=== PATIENT | female | born 1955 | race Caucasian/White ===

== ENCOUNTER 2019-07-18 08:27 | Inpatient (IN) ==
--- NOTE | 2019-07-18 08:59 | PROVIDER DOCUMENTATION ---
HPI-General Adult - General Chief Complaint: Flu Symptoms Stated Complaint: BODY PAIN Time Seen by Provider: 07/18/19 08:58 Source: patient Allergies/Adverse Reactions: Patient Allergies Allergy/AdvReac Type Severity Reaction Status Date / Time codeine AdvReac ITCHING Verified 06/19/19 03:36 Home Medications: Home Medication List Medication Instructions Recorded Confirmed Last Taken Type Duloxetine [Cymbalta] 60 mg PO BID 03/03/15 07/18/19 08/08/17 History Lamotrigine 100 mg PO BID 03/03/15 07/18/19 08/08/17 History Lisinopril/Hydrochlorothiazide 1 tab PO QAM 03/03/15 07/18/19 08/08/17 History [Lisinopril-Hctz 20-25 mg Tab] Methotrexate 2.5 mg PO DIRECTED 12/09/16 07/18/19 07/12/17 17:00 History Paroxetine HCl 30 mg PO QAM 12/09/16 07/18/19 08/08/17 History - History of Present Illness -Gen Adult Nature of Presenting Problems: Pt. is 64 yof that presents with c/o body aches with abd pain and diarrhea. Pt. reports symptoms for two weeks. She has a Hx of RA and states this is not the pain she is experiencing. Pt. denies any fever but does report smoking. Location of Pain/Injury: reports: generalized. denies: none, head, face, mouth, neck, chest, upper extremity, hand(s), abdomen, back, pelvis, genitalia, lower extremity, feet, upper body, lower body, other Pain Radiation: reports: no radiation. denies: arm(s), back, buttocks, chest, epigastric, feet, groin, jaw, flank (L), legs (lower), LLQ, LUQ, neck, periumbilical, flank (R), RLQ, RUQ, shoulder(s), scapula, scrotal, sternal notch, suprapubic, legs (upper), urethral, vaginal, other Quality of Pain: reports: aching. denies: burning, pressure, tightness Severity: reports: mild. denies: moderate, severe Onset/Duration: reports: gradual, other (Three weeks) Timing: reports: still present. denies: improving, intermittent, getting worse Context/Activities at Onset: reports: none. denies: light activity, moderate activity, vigorous activity, recent emotional stress, recent physical stress, recent trauma history, possible bad food, cold exposure, eating, out of country travel, rest, sleep, sexual activity, other Modifying Factors: improves with: nothing Associated Symptoms: reports: cough, diarrhea, muscle aches. denies: denies symptoms, anxiety, arm pain, back/neck pain, chest pain, constipation, diaphoresis, dizziness, EENT symptoms, fatigue, fever/chills, genitourinary problems, headaches, heartburn, joint pain, loss of appetite, malaise, sinus congestion/drainage, nausea, rash, seizure, shortness of breath, sensory/motor loss, pain with inspiration, swelling/mass in abdomen, syncope, vomiting, weakness, trouble walking, other Similar Symptoms Previously?: Yes Recently seen or treated by another doctor?: No Review of Systems - Adult - REVIEW OF SYSTEMS - ADULT Constitutional: reports: no symptoms reported Eyes: reports: no symptoms reported Ears, Nose, Mouth & Throat: reports: no symptoms reported Cardiovascular: reports: no symptoms reported Respiratory: reports: no symptoms reported Gastrointestinal: reports: see HPI, diarrhea. denies: hematemesis, frequent heartburn, nausea, vomiting Genitourinary: reports: no symptoms reported Musculoskeletal: reports: see HPI, muscle aches. denies: back pain, joint pain, neck pain Integumentary: reports: no symptoms reported Neurological: reports: no symptoms reported Psychiatric: reports: no symptoms reported Past History - Adult - PAST MEDICAL HISTORY-ADULT Review of Records: reports: Old Records Reviewed, Nursing Assessment Review, Medications Reviewed, Social history reviewed & non-contributory. Major Childhood Illnesses: reports: denies history Cardiovascular: reports: HTN Respiratory: reports: COPD Obstetrical/Gynecological: reports: denies history Musculoskeletal: reports: intervertebral disc disease Neurological: reports: denies history Psychiatric: reports: depression Other Conditions: reports: denies history - PRIOR SURGERIES/PROCEDURES Surgical/Procedure History: reports: cholecystectomy, hysterectomy, BTL, other (left eye sx) - IMMUNIZATION STATUS Childhood Immunizations: See Nurse Assessment Flu Vaccine: See Nurse Assessment - FAMILY HISTORY Family History: reviewed, not pertinent - SOCIAL HISTORY Smoking: cigarettes, greater than 1 pack/day Provider spent 3-5 mins advising pt. on dangers of tobacco.: Discussed manners to quit use, and f/u contacts for add'l counseling. Physical Exam-General - PHYSICAL EXAM-ADULT Initial Vital Signs Reviewed: Yes - CONSTITUTIONAL General Appearance: alert, no apparent distress. negative: anxious, slow to respond, obtunded, combative - EYES Eyes: PERRL/EOMI, pink conjunctivae - HEAD, EARS, NOSE, MOUTH & THROAT HENMT: normocephalic/atraumatic, moist mucous membranes - NECK Neck: non-tender, full range of motion, supple, normal inspection - RESPIRATORY Respiratory: lungs clear, normal breath sounds - CARDIOVASCULAR Cardiovascular: normal peripheral pulses, regular rate, rhythm, no edema - GASTROINTESTINAL (ABDOMEN) Abdominal Exam: normal bowel sounds, non tender, soft - LYMPHATIC Lymphatic: no adenopathy - MUSCULOSKELETAL Back Exam: normal inspection, no CVA tenderness, no vertebral tenderness Extremity: normal range of motion, non-tender, normal gait, normal inspection Peripheral Pulses: radial (R): 2+, radial (L): 2+ - SKIN Integumentary: normal color, normal turgor, warm/dry. negative: cyanosis, erythema, swelling - NEUROLOGIC Neurologic: grossly normal, no motor/sensory deficits - PSYCHIATRIC Psych/Mental Status: normal mood/affect, normal thought content, normal thought process, oriented x 3. negative: anxious, paranoid, tearful Progress - PLAN OF CARE/RESULTS Progress/Plan/Lab Results: Vital Signs - 8 hr 07/18/19 08:30 Temperature 97.5 F L Pulse Rate 88 Respiratory Rate 20 Blood Pressure 101/66 O2 Sat by Pulse Oximetry 96 07/18/19 08:35 Influenza Screen - Final Nasopharyngeal Orders Category Date Time Status Flu Swab [INFLUENZA SCREEN A/B] Stat Lab 07/18/19 08:35 Completed Result Diagrams: 07/18/19 09:14 07/18/19 09:14 - XRAY 1 XRAY Study: Chest, Abdomen ([facility] - [address] , [address], [place] [address] [facility] - [address] [place] [address] Department of Imaging Patient: SAAD VASQUEZ MADPadilla Date: 07/18/19MR#: [id number] : 1955ADM Status: REG ERAcct#: [id number] Age/Sex: 64/FRoom/Bed: Loc: ED Ordering Physician: Nithin Humphrey Family Physician: None,PCP Reason for Procedure: abd pain Signed EXAM: FLAT/UPRIGHT ABD/1 VIEW CHEST 07/18/2019 HISTORY: abd pain TECHNIQUE: Flat and upright abdomen with PA chest COMMENT: There is COPD an apparent fibrosis in the right lower lobe and upper lobe. Some of the fibrotic appearing opacities in the right lower lobe are new since the previous study of 03/04/2015. The possibility of superimposed atelectasis cannot be excluded. There are surgical clips in the right upper quadrant. There are numerous phleboliths in the pelvis. There is some colonic and small bowel gas in a nonspecific pattern and there is some stool in the rectum. The stomach is not distended. There is no evidence of organomegaly or mass. IMPRESSION: Pulmonary fibrosis and COPD. Nonspecific abdomen. Electronically signed by Leandro castro 07/18/2019 10:21 AM 07/18/19 1021 Interpreting Physician: Leandro Castillo MD Dictated Date/Time: 07/18/19 1020 cc: Nithin Humphrey; None,PCP) XRAY Interpretation: See note - CONSULTS/PCP/HOSPITALIST Notification #1 *Consult/PCP/Hospitalist*: Kristen Velasco Time Discussed: 10:41 Reason/Comments: Admission Consult Disposition: Will see in ED, Admit Departure - Departure Date of Disposition Decision: 07/18/19 Time of Disposition Decision: 10:43 DIAGNOSIS: Acute renal failure Qualifiers: Acute renal failure type: unspecified Qualified Code(s): N17.9 - Acute kidney failure, unspecified Leukocytosis (leucocytosis) Qualifiers: Leukocytosis type: unspecified Qualified Code(s): D72.829 - Elevated white blood cell count, unspecified Disposition: ADMITTED INPATIENT 09 Certified Medical Emergency: Emergent Condition: Stable Referrals and Follow-Ups: None,PCP [Primary Care Provider] - - Critical Care Note This patient required my direct & personal management of CC.: No Attestation - Physician/ SHAKEEL Attestation Patient care was provided by Advanced Practice Provider:: Yes Advanced Practice Provider:: Nithin Humphrey Advanced Practice Provider documentation review:: The Mid-level provider docu mentation, treatment plan and medical decision making was reviewed by the physician who agrees with all treatment and medical decision making by the MLP. The physician spent face to face time with patient:: No Advanced Practice Provider documentation review:: Supervising physician onsite and consulted in the evaluation and care of this patient. The physician did not have a face to face encounter with the patient.
[2019-07-18 09:35] LABS: BASO# 0.02 X1000 (0.0-0.2); BASO% 0.1 % (0.0-0.8); EOS% 0.6 % (0.0-10.0); HEMATOCRIT 42.4 % (37.0-47.0); HEMOGLOBIN 14.3 g/dL (12.0-16.0); IMM GRAN# 0.06 X1000 (0.0-0.04); IMM GRAN% 0.4 % (0.0-0.5); LYMPH# 2.67 X1000 (1.2-3.4); LYMPH% 16.5 % (20.5-51.1); MCHC 33.7 g/dL (33-37); MONO# 1.37 X1000 (0.11-0.59); MONO% 8.4 % (1.7-9.3); MPV 10.6 FL (7.4-10.4); NEUT# 12.01 X1000 (1.4-6.5); PLT 349 X1000 (130-400); RBC 4.61 XMIL (4.2-5.4); RDW 14.1 % (11.5-14.5); WBC 16.23 X1000 (4.8-10.8)
[2019-07-18 09:44] LABS: URINE SOURCE CLEAN CATCH
[2019-07-18 09:49] LABS: BILIRUBIN URINE SMALL (NEGATIVE); BLOOD URINE NEGATIVE (NEGATIVE); COLOR YELLOW; GLUCOSE URINE TRACE mg/dL (NEGATIVE); KETONE URINE TRACE mg/dL (NEGATIVE); LEUKOCYTES URINE NEGATIVE (NEGATIVE); NITRITE URINE NEGATIVE (NEGATIVE); PROTEIN URINE 50 mg/dL (NEGATIVE); SP GRAVITY URINE 1.023; TURBIDITY URINE CLEAR (CLEAR); UROBILINOGEN URINE 2 mg/dL (NORMAL)
[2019-07-18 09:50] LABS: UR EPITHELIAL CELLS <10 /HPF (<10); URINE BACTERIA NEGATIVE /HPF; URINE RBC <10 /HPF (<10); URINE WBC <10 /HPF (<10)
[2019-07-18 09:53] LABS: ALBUMIN 3.3 g/dL (3.5-5.0); CALCIUM 9.1 mg/dL (8.8-10.2); POTASSIUM 3.7 mmol/L (3.5-5.1); TOTAL BILIRUBIN 0.46 mg/dL (0.20-1.00); TOTAL PROTEIN 6.7 g/dL (6.3-8.3)
[2019-07-18] MEDS ORDERED: NS 1,000 ML IV ONE ×2 (09:56→10:59)
[2019-07-18] MEDS ORDERED: ROCEPHIN 1 GM in NS 50 ML IV ONE (10:14)
[2019-07-18 10:22] LABS: INR 1.06; PROTIME 13.9 Seconds (11.0-16.0)
[2019-07-18 10:23] LABS: PTT 32.4 Seconds (22.3-41.8)
--- NOTE | 2019-07-18 10:24 | Diag Imaging Result Doc PS360 ---
EXAM: FLAT/UPRIGHT ABD/1 VIEW CHEST 07/18/2019 HISTORY: abd pain TECHNIQUE: Flat and upright abdomen with PA chest COMMENT: There is COPD an apparent fibrosis in the right lower lobe and upper lobe. Some of the fibrotic appearing opacities in the right lower lobe are new since the previous study of 03/04/2015. The possibility of superimposed atelectasis cannot be excluded. There are surgical clips in the right upper quadrant. There are numerous phleboliths in the pelvis. There is some colonic and small bowel gas in a nonspecific pattern and there is some stool in the rectum. The stomach is not distended. There is no evidence of organomegaly or mass. IMPRESSION: Pulmonary fibrosis and COPD. Nonspecific abdomen. Electronically signed by Leandro Castillo 07/18/2019 10:21 AM
[2019-07-18] MEDS ORDERED: TYLENOL PO PRN (11:42)
--- NOTE | 2019-07-18 13:18 | HISTORY AND PHYSICAL ---
PRIMARY CARE PHYSICIAN: Listed as none. CHIEF COMPLAINT: Nausea, vomiting and diarrhea with abdominal pain over the past 3 weeks that has progressively worsened. HISTORY OF PRESENTING ILLNESS: This is a 64-year-old female who presents to [facility] ER with complaints of nausea, vomiting, diarrhea and some generalized abdominal pain for the past 3 weeks. Also has some body aches. States the vomiting comes after she tries to eat. Workup in the emergency room showed a white blood cell count of 16.23. BUN was 41 with a creatinine of 2. Sodium was 132. Plasma lactate of 0.9. When she arrived, she had a blood pressure of 101/66, but she did drop it to 82/50s and so she has been given fluid resuscitation and is on her 2nd L bolus of normal saline. We did an abdominal x-ray that showed pulmonary fibrosis and COPD, but a nonspecific abdomen, so she will be admitted for further evaluation and treatment. PAST MEDICAL HISTORY: Rheumatoid arthritis, hypertension, COPD, depression. 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 PAST SURGICAL HISTORY: Cholecystectomy, hysterectomy, bilateral tubal ligation and a left eye surgery. FAMILY HISTORY: Reviewed and noncontributory. SOCIAL HISTORY: She currently lives alone. Smokes 3 cigarettes a day and has done so for the past 40 years. Denied any alcohol or illicit drug use. ALLERGIES: Codeine. HOME MEDICATIONS: She takes Cymbalta 60 mg p.o. b.i.d., lamotrigine 100 mg p.o. b.i.d. We will hold her lisinopril/hydrochlorothiazide 20/25 p.o. q.a.m. and hold her methotrexate 2.5 mg p.o. as directed and will continue her paroxetine 30 mg p.o. q.a.m. LABORATORY DATA: Showed a white blood cell count of 16.23, hemoglobin 14.3, hematocrit 42.4, platelets 349,000. PT and INR of 13.9 and 1.06. Sodium of 132, potassium 3.7, chloride 95, CO2 20, BUN of 41, creatinine 2, glucose 104, magnesium of 2, cardiac enzyme was negative. Plasma lactate of 0.9. Urinalysis was negative. Abdominal x-ray showed pulmonary fibrosis and COPD, but a nonspecific abdomen. REVIEW OF SYSTEMS: She denied any fever, chills, blurred vision, dizziness. She did have body aches. She had generalized abdominal pain, nausea, vomiting, diarrhea. Denied any chest pain, coughing, shortness of breath, or burning or hurting with urination. PHYSICAL EXAMINATION: VITAL SIGNS: On arrival, she had a temperature of 97.5 degrees, pulse 88, respirations 20, blood pressure 101/66, saturating 96% on room air. She did drop her blood pressure to 80s over 50s. After fluid resuscitation she was back up to the 100s over 70s. HEENT: Normocephalic, atraumatic. Normal ENT inspection. Oropharynx and nares are clear. EYES: The patient has a glass left eye. Her right pupil is equal, round, reactive to light and the extraocular movement is intact in her right eye. NECK: Normal inspection. Normal range of motion. LUNGS: Clear to auscultation bilaterally with equal lung expansion and chest wall movement. HEART: Regular rate and rhythm. No murmurs, rubs, or gallops. ABDOMEN: Soft, nontender, nondistended. Bowel sounds are present x4 quadrants. MUSCULOSKELETAL: She has 5/5 strength x4 extremities. NEUROLOGICAL: The cranial nerves 2-12 appear grossly intact. ASSESSMENT: 1. Nausea, vomiting, diarrhea with generalized abdominal pain. 2. Acute kidney injury secondary to #1. 3. Leukocytosis. 4. Hypotension. 5. Tobacco abuse. PLAN: She will be admitted to the medical unit and placed on telemetry. We are going to check a CT of the abdomen with p.o. contrast. She will be on normal saline at 125 mL an hour. Again, she has received 2 separate L of normal saline in the emergency room. Give her Zofran 4 mg IV q.4 hours p.r.n. We will check a Clostridium difficile toxin, stool culture, white blood cells, 4 stool, and a shiga toxin stool. Placed her on a clear liquid diet. SCDs for DVT prophylaxis. Further orders after seen by attending. Dictated by VITA Ascencio for Robin Velasco MD cc: VTIA Ascencio MD
--- NOTE | 2019-07-18 13:20 | Diag Imaging Result Doc PS360 ---
CT ABD/PELVIS W/ORAL CONT ONLY - 07/18/2019 INDICATION: NV,Diarrhea,Abd pain COMPARISON: 12/09/2016 FINDINGS: There is some stable pulmonary fibrosis in the lung bases. No new infiltrates. Heart size is normal. There are cholecystectomy clips. There is a stable parenchymal calcification in an area of scarring at the upper pole of the right kidney. There is a tiny stone at the lower pole of the right kidney. No hydronephrosis or hydroureter. The left side is normal. 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 No bowel obstruction or inflammation. No significant constipation. There are a couple stable diverticula of the sigmoid colon. Uterus is absent. Urinary bladder, ovaries, and rectum are normal. There are moderate degenerative changes of the spine. No acute or suspicious bony lesion. IMPRESSION: Small nonobstructing right renal stone. Otherwise, no acute disease or change from prior. This exam was performed using automated exposure control, adjustment of mA or kV according to patient size, and/or use of iterative reconstruction technique Electronically signed by Jose Quezada 07/18/2019 1:17 PM
[2019-07-18] MEDS ORDERED: MORPHINE IV PRN (15:03)
[2019-07-18] MEDS: NS 1,000 ML IV SCH (16:01)
[2019-07-18] MEDS: MORPHINE IV PRN ×2 (18:24→23:13)
--- NOTE | 2019-07-18 19:42 | HISTORY AND PHYSICAL ---
The patient has no major complaints except severe pain. She is crying in pain. Her abdominal exam is pretty benign. I mean there is not specific tenderness. There is certainly no rebound, no guarding. Her CT with oral contrast only because of her creatinine really was unremarkable. Granted it was without IV contrast. Her workup in the ER revealed acute kidney injury, which is the main reason she was admitted. She had some leukocytosis. She reports nausea, vomiting, diarrhea, but then she also said she has not had any diarrhea today, which was the day of admission, but any ways, we will hydrate her and observe and continue to follow. Check urine electrolytes, and if she is stable, tolerating clears tomorrow anticipate discharge, and we can arrange follow up with GI. This is a [id number] encounter note with Kristen Trent. cc: Robin Velasco MD
[2019-07-18] MEDS: LAMICTAL PO SCH (21:39)
[2019-07-19] MEDS: MORPHINE IV PRN ×5 (06:50→22:09)
[2019-07-19] MEDS: NS 1,000 ML IV SCH ×3 (06:51→18:17)
[2019-07-19 07:52] LABS: BASO# 0.01 X1000 (0.0-0.2); BASO% 0.1 % (0.0-0.8); EOS# 0.01 X1000 (0.0-0.7); EOS% 0.1 % (0.0-10.0); HEMATOCRIT 37.4 % (37.0-47.0); HEMOGLOBIN 12.4 g/dL (12.0-16.0); IMM GRAN# 0.03 X1000 (0.0-0.04); IMM GRAN% 0.2 % (0.0-0.5); LYMPH# 1.21 X1000 (1.2-3.4); MCHC 33.2 g/dL (33-37); MCV 93.5 FL (81-99); MONO# 0.47 X1000 (0.11-0.59); MONO% 3.1 % (1.7-9.3); MPV 10.1 FL (7.4-10.4); NEUT# 13.37 X1000 (1.4-6.5); NEUT% 88.5 % (42.2-75.2); PLT 276 X1000 (130-400); RDW 13.7 % (11.5-14.5)
[2019-07-19 08:02] LABS: CALCIUM 8.6 mg/dL (8.8-10.2); CREATININE 1.1 mg/dL (0.5-0.9); POTASSIUM 4.1 mmol/L (3.5-5.1)
[2019-07-19 09:26] LABS: BANDS 2 % (0-1); LYMPHS 8 % (21-51); MONO 8 % (1-9); SEGS 82 % (42-75)
[2019-07-19] MEDS ORDERED: HALL'S COUGH LOZENGE MT ONE (09:37)
[2019-07-19] MEDS: PAXIL PO SCH (09:56)
[2019-07-19] MEDS: FOLIC ACID PO SCH (09:56)
[2019-07-19] MEDS: CYMBALTA PO SCH ×3 (09:59→22:10)
[2019-07-19] MEDS: LAMICTAL PO SCH ×2 (09:59→22:10)
[2019-07-19 10:42] LABS: UR CREAT RANDOM 53.6 mg/dL (11-20); UR PROT RANDOM 26.1 mg/dL
[2019-07-19] MEDS: ZOFRAN IV PRN ×2 (11:52→14:41)
[2019-07-19] MEDS ORDERED: PRILOSEC PO ONE (14:53)
--- NOTE | 2019-07-19 17:40 | PROGRESS NOTE ---
DATE: 07/19/2019 SUBJECTIVE: The patient has no major complaints. OBJECTIVE: Vital Signs: Blood pressure 125/71, heart rate of 100, respiratory rate of 18, temperature 97.8 degrees, 96% on 2 L. Cardiovascular: Regular rate and rhythm. Pulmonary: Bilateral breath sounds. Diminished at the bases. Gastrointestinal: Abdomen soft. There was some distention, but no rebound. No guarding. LABORATORY DATA: White count is 15, hemoglobin and hematocrit 12 and 37, platelets 276,000. Her creatinine is down to 1.1. PROBLEM LIST: 1. Acute kidney injury due to dehydration. She is much improved. 2. Nausea, vomiting, and diarrhea. The diarrhea has improved. Nausea and vomiting is also improving. We will advance her diet, place her on a proton pump inhibitor. I will get a GI opinion, although I think if she is tolerating p.o. she can we can just do outpatient workup EGD. Daughter feels like she is too weak to get up and around. I do not think they have really tried to do much getting up and around but we will work on that, if she is tolerating p.o. without difficulty, I think she could go home in the next 24 hours. cc: Robin Velasco MD
[2019-07-20] MEDS: NS 1,000 ML IV SCH ×2 (02:22→10:28)
[2019-07-20] MEDS: MORPHINE IV PRN ×3 (05:01→15:49)
[2019-07-20] MEDS ORDERED: PRILOSEC PO SCH (07:00)
[2019-07-20 07:29] LABS: BASO# 0.01 X1000 (0.0-0.2); BASO% 0.1 % (0.0-0.8); EOS# 0.06 X1000 (0.0-0.7); EOS% 0.5 % (0.0-10.0); HEMATOCRIT 35.6 % (37.0-47.0); HEMOGLOBIN 11.3 g/dL (12.0-16.0); IMM GRAN# 0.03 X1000 (0.0-0.04); IMM GRAN% 0.2 % (0.0-0.5); LYMPH# 1.14 X1000 (1.2-3.4); LYMPH% 9.1 % (20.5-51.1); MCH 30.5 PG (27-31); MCHC 31.7 g/dL (33-37); MCV 96.2 FL (81-99); MONO# 0.46 X1000 (0.11-0.59); MONO% 3.7 % (1.7-9.3); NEUT# 10.78 X1000 (1.4-6.5); NEUT% 86.4 % (42.2-75.2); PLT 277 X1000 (130-400); WBC 12.48 X1000 (4.8-10.8)
[2019-07-20 07:55] LABS: LYMPHS 8 % (21-51); MONO 2 % (1-9); SEGS 90 % (42-75)
[2019-07-20 08:19] LABS: AGAP 12; BUN 9 mg/dL (8-22); CALCIUM 8.4 mg/dL (8.8-10.2); CHLORIDE 105 mmol/L (98-107); COSMO 274; CREATININE 0.9 mg/dL (0.5-0.9); ESTIMATED GFR > 60; GLUCOSE 90 mg/dL (70-104); SODIUM 138 mmol/L (136-145); TCO2 21 mmol/L (25-35)
[2019-07-20] MEDS: LAMICTAL PO SCH ×2 (10:02→22:04)
[2019-07-20] MEDS: CYMBALTA PO SCH ×2 (10:02→22:01)
[2019-07-20] MEDS: PAXIL PO SCH (10:02)
[2019-07-20] MEDS: FOLIC ACID PO SCH (10:02)
[2019-07-20] MEDS ORDERED: SODIUM CHLORIDE 0.9% INJ SCH (17:15)
[2019-07-20] MEDS ORDERED: TORADOL IV ONE (19:04)
[2019-07-20] MEDS: MIRALAX PO SCH (22:00)
[2019-07-20] MEDS: DULCOLAX PR SCH (22:00)
[2019-07-20] MEDS: PROTONIX IV SCH (22:19)
--- NOTE | 2019-07-20 23:48 | PROGRESS NOTE ---
DATE: 07/20/2019 SUBJECTIVE: She feels weak. She has pain in her neck. She has multiple complaints. She is requiring at least a person to help her transition from bed to chair. OBJECTIVE: Blood pressure 136/70, heart rate 103, respiratory rate 20, temperature 97.9 degrees.Cardiovascular: Regular rate and rhythm. Pulmonary: Bilateral breath sounds, clear to auscultation. GI: Soft, nontender, nondistended. Bowel sounds are positive. LABORATORY DATA: White count is 12, hemoglobin and hematocrit 11 and 35, platelets 277,000. Basic was normal. ASSESSMENT AND PLAN: 1. Acute kidney injury, dehydration. We are going to stop intravenous fluids because she is getting swollen. 2. Gastrointestinal/abdominal complaints, uncertain. Now she is constipated, so she has been placed on a stool regimen, which may have been complicated by pain medication, but she did not have those issues when she first came in. We will stop pain medications and follow. Her kidney function is better, so I am going to give her some Toradol, nonnarcotic, and watch her kidney function very closely. We will go from there. cc: Robin Velasco MD
--- NOTE | 2019-07-21 01:08 | GASTROENTEROLOGY CONSULTATION ---
DATE: 07/20/2019 ATTENDING PHYSICIAN: Robin Velasco MD. REASON FOR CONSULTATION: Nausea, vomiting, diarrhea, constipation, abdominal pain. HISTORY OF PRESENT ILLNESS: Ms. Cheung is a 64-year-old female who was admitted on 07/18/2019 for nausea, vomiting, diarrhea, abdominal pain and constipation for the last 3 weeks, which has progressively worsened. The patient had a colonoscopy done about a year ago in [place]. She does not recall the name of the doctor. She said the colonoscopy was normal. There was no evidence of any colitis. The patient's last bowel movement was 4 days ago. She feels constipated. She complains of abdominal bloating. She has history of prior intermittent constipation. She feels nauseous and has poor oral intake for the last few weeks. She is also complaining of neck pain, which started last night. She had a workup done in the hospital which showed evidence of elevated white count. Abdominal x-ray and chest x-ray showed pulmonary fibrosis and COPD with nonspecific abdomen. She also had a CT scan of the abdomen and pelvis done in the hospital, which showed evidence of stable pulmonary fibrosis in the lung bases. No new infiltrates and the heart size is normal. There are cholecystectomy clips. There is a tiny stone in the lower pole of the right kidney. Stable severe vascular disease of the abdominal aorta and pelvic arteries noted. There are a couple stable diverticulum noted of the sigmoid colon. Uterus is absent. There are moderate degenerative changes of the spine noted. Since being on admission, patient being treated with IV fluids and IV pain control. She has responded well. She was able to eat her meal this morning. No documented vomiting blood or blood in the stools. PAST MEDICAL HISTORY: Rheumatoid arthritis, hypertension, COPD, depression. 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 PAST SURGICAL HISTORY: Cholecystectomy, hysterectomy, bilateral tubal ligation, left eye surgery. FAMILY HISTORY: Noncontributory. SOCIAL HISTORY: She currently lives alone. She smokes 3 cigarettes a day. She has been a chronic smoker for more than 40 years. She denies history of alcohol, illicit drug abuse. ALLERGIES: Codeine. MEDICATIONS IN THE HOSPITAL: 1. Tylenol. 2. Dulcolax. 3. Cymbalta. 4. Folic acid. 5. Lamictal. 6. Morphine. 7. Normal saline 125 mL/h. 8. Prilosec 40 mg once daily. 9. Zofran. 10. Paxil. 11. MiraLAX 17 g p.o. b.i.d.. 12. Eucalyptus oil/menthol by mouth once. She is currently on GI soft diet. REVIEW OF SYSTEMS: Denies any fevers, rigors, chills, chest pain, shortness of breath, dyspnea. She does have chronic cough, she has history of COPD. She has some neck pain and back pain. She complains of abdominal distention. She complains of mild nausea, which is improving. She also complains of constipation, last bowel movement 4 days ago. She has blindness in the left. She denies any neurologic complaints. PHYSICAL EXAM: Vital signs: Temperature 97.9 degrees, pulse rate of 103, respiratory rate 20, blood pressure 132/70, saturating 98% room air, body weight of 156 pounds 8 ounces. BMI 28.6 kg. General: Moderately built, lying in bed, in no acute distress. HEENT: Mild pallor. No icterus. Pupils equal, reactive to light. Neck: Supple. Abdomen: Mild distention noted. No rebound or guarding. Mild discomfort. Extremities: No cyanosis, clubbing. Neurologic: She is awake, alert. Answers questions. LABS: Hemoglobin and hematocrit 11.8 and 35.6, white count of 12.4, platelet count of 277,000. Sodium 130, potassium 4, chloride 105, bicarb 21, anion gap 12, BUN of 9, creatinine 0.9. Glucose 90, calcium 8.4. Blood culture x2 negative at 48 hours from 07/18/2019. Flu screen from the nasopharyngeal swab was negative for A and B. CT scan of the abdomen and pelvis per HPI. Abdominal x-ray on 07/18 showing pulmonary fibrosis, COPD, nonspecific abdomen. IMPRESSION: 1. Nausea and vomiting is improving. 2. Constipation. Last bowel movement was 4 days ago. 3. History of diarrhea at home, which appears to have resolved. The patient has not had any bowel movement since admission. 4. Acute kidney injury due to dehydration, which is improved. 5. Leukocytosis, improved. 6. Mild anemia. Continue to watch. 7. Pulmonary fibrosis in the lung bases. Aware. 8. Chronic obstructive pulmonary disease. 9. Chronic smoker. 10. Kidney stone in the right kidney. 11. Mild diverticulosis in the sigmoid colon. 12. 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 13. Neck pain. RECOMMENDATIONS: We will start the patient on MiraLAX 17 g p.o. b.i.d. and Dulcolax per rectal b.i.d. for constipation, last bowel 4 days ago. She is also on narcotics and COPD, which can contribute to her constipation and bloating. She will continue on Prilosec once daily. She will continue IV fluids per the primary team. She has history of depression for which she is taking Paxil and Cymbalta, per primary care team. We will switch her Prilosec to Protonix. The patient was counseled to quit smoking completely. Continue PPI for GI prophylaxis and bowel regimen with MiraLAX and Dulcolax. No plans for endoscopy at this time. The above plans discussed with the patient and all questions answered. Please call us with any further questions. Thank you for allowing us to participate in the care of your patient. cc: Emmanuel Garcia MD MTDDony
[2019-07-21] MEDS: TORADOL IV PRN ×3 (05:26→18:58)
[2019-07-21 07:32] LABS: BASO# 0.01 X1000 (0.0-0.2); BASO% 0.2 % (0.0-0.8); EOS# 0.18 X1000 (0.0-0.7); EOS% 3.2 % (0.0-10.0); HEMATOCRIT 30.5 % (37.0-47.0); HEMOGLOBIN 9.8 g/dL (12.0-16.0); LYMPH# 1.33 X1000 (1.2-3.4); MCH 30.7 PG (27-31); MCHC 32.1 g/dL (33-37); MCV 95.6 FL (81-99); MONO# 0.37 X1000 (0.11-0.59); MONO% 6.7 % (1.7-9.3); NEUT# 3.66 X1000 (1.4-6.5); NEUT% 65.9 % (42.2-75.2); PLT 242 X1000 (130-400); RBC 3.19 XMIL (4.2-5.4); RDW 13.7 % (11.5-14.5); WBC 5.55 X1000 (4.8-10.8)
[2019-07-21 07:43] LABS: AGAP 8; BUN 8 mg/dL (8-22); CALCIUM 8.3 mg/dL (8.8-10.2); CHLORIDE 104 mmol/L (98-107); COSMO 270; CREATININE 0.9 mg/dL (0.5-0.9); ESTIMATED GFR > 60; GLUCOSE 101 mg/dL (70-104); POTASSIUM 3.4 mmol/L (3.5-5.1); SODIUM 136 mmol/L (136-145); TCO2 24 mmol/L (25-35)
[2019-07-21] MEDS: CYMBALTA PO SCH ×2 (10:00→20:48)
[2019-07-21] MEDS: DULCOLAX PR SCH ×3 (10:00→20:54)
[2019-07-21] MEDS: FOLIC ACID PO SCH (10:00)
[2019-07-21] MEDS: MIRALAX PO SCH ×3 (10:01→20:54)
[2019-07-21] MEDS: PAXIL PO SCH (10:01)
[2019-07-21] MEDS: LAMICTAL PO SCH ×2 (10:01→20:49)
--- NOTE | 2019-07-21 17:26 | PROGRESS NOTE ---
DATE: 07/21/2019 SUBJECTIVE: Patient has no major complaints. Blood pressure is 100/66, heart rate of 77, respiratory rate of 16, temperature 98.9 degrees, 95% on room air. Cardiovascular: Regular rate and rhythm. Pulmonary: Bilateral breath sounds clear to auscultation. GI: Was soft, nontender, nondistended. Bowel sounds are positive. LABORATORY DATA: White count 5, hemoglobin and hematocrit 9 and 30, platelets 242,000, potassium 3.4. PROBLEM LIST: 1. Acute kidney injury that has resolved. Continue to monitor. 2. Constipation after an episode of gastroenteritis. We will give her some medications and follow closely. She is still not having a lot of bowel movements. I am not sure if the narcotics contribute to this. We will give her some Relistor. She is already on lactulose and MiraLAX, actually she is not on lactulose. 3. Generalized weakness. We will get a PT consult and go from there. DISPOSITION: I think she is improving enough hopefully get her home by tomorrow depending on her strength. We will continue to follow closely. cc: Robin Velasco MD
--- NOTE | 2019-07-21 19:08 | GASTROENTEROLOGY PROGRESS NOTE ---
DATE: 07/21/2019 SUBJECTIVE: Patient resting in bed. Her family is at bedside. The patient is feeling better. She had nausea vomiting, which is improved. She is eating 100% of her meal. She did move her bowels with laxatives. Her constipation is improved. She denies any vomiting blood or passing blood in the stools. She reports having a colonoscopy done more than a year ago. According to the patient, it was normal. OBJECTIVE: Vitals: Temperature 98.9 degrees, pulse of 77, respiratory rate 16, blood pressure 100/66, saturating 94% on 2 L nasal cannula. Body weight of 156 pounds 8 ounces. General Appearance: Moderately nourished, lying in bed, in no acute distress. HEENT: Mild pallor. No icterus. Pupils are equal, reactive to light. Neck: Supple. Abdomen: Soft, nontender, nondistended. No guarding or rebound. Extremities: No cyanosis, clubbing. Neurologic: She is alert, awake, oriented x3. LABS: Hemoglobin and hematocrit is 9.8 and 30.5, white count of 5.5, platelet count of 242,000. Sodium 130, potassium 3.4, chloride 104, bicarb 24, anion gap of 8, BUN of 8, creatinine 0.9, glucose of 101, calcium is 8.3. Blood culture was negative at 48 hours and flu screen was negative for A and B. IMPRESSION AND PLAN: 1. Acute kidney injury which is resolved. 2. Constipation. We will continue MiraLAX and Dulcolax twice daily. The patient does not recall the name of the doctor who did her colonoscopy a year ago, but according to her, the colonoscopy was normal. 3. Generalized weakness. She will be assessed by Physical Therapy hopefully tomorrow and the primary care team we will make the discharge planning based on that. 4. Nausea and vomiting is improved. 5. Constipation is improving. 6. History of diarrhea at home, which is now resolved. 7. Leukocytosis, improved. 8. Mild anemia. Continue to watch for now. We will start on multivitamin once daily. 9. Chronic obstructive pulmonary disease. Aware. 10. Pulmonary fibrosis in the lung bases. Aware. 11. Chronic smoker. The patient is counseled to quit smoking. 12. Kidney stone in the right kidney. Aware. 13. Mild diverticulosis of the sigmoid colon. Aware. The patient will avoid excessive corn, nuts, and seeds in diet. 14. 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 She also had neck pain which is improved now. The above plans were discussed with the patient and family and all questions answered. Please call with any further questions. cc: MD Robin Jacome MD MTDD
[2019-07-21] MEDS: PROTONIX IV SCH (20:49)
[2019-07-21] MEDS: ULTRAM PO PRN (20:53)
[2019-07-21] MEDS: LACTULOSE PO SCH (20:54)
[2019-07-22 07:35] LABS: BASO# 0.01 X1000 (0.0-0.2); BASO% 0.2 % (0.0-0.8); EOS# 0.19 X1000 (0.0-0.7); EOS% 4.7 % (0.0-10.0); HEMATOCRIT 31.3 % (37.0-47.0); HEMOGLOBIN 9.9 g/dL (12.0-16.0); IMM GRAN# 0.02 X1000 (0.0-0.04); IMM GRAN% 0.5 % (0.0-0.5); LYMPH# 1.25 X1000 (1.2-3.4); LYMPH% 31.2 % (20.5-51.1); MCH 30.2 PG (27-31); MCHC 31.6 g/dL (33-37); MCV 95.4 FL (81-99); MONO# 0.23 X1000 (0.11-0.59); MONO% 5.7 % (1.7-9.3); MPV 9.7 FL (7.4-10.4); NEUT# 2.31 X1000 (1.4-6.5); NEUT% 57.7 % (42.2-75.2); PLT 271 X1000 (130-400); RBC 3.28 XMIL (4.2-5.4); RDW 13.8 % (11.5-14.5); WBC 4.01 X1000 (4.8-10.8)
[2019-07-22 08:04] LABS: CALCIUM 8.2 mg/dL (8.8-10.2); POTASSIUM 3.6 mmol/L (3.5-5.1)
[2019-07-22] MEDS: FOLIC ACID PO SCH (09:25)
[2019-07-22] MEDS: LAMICTAL PO SCH ×2 (09:25→20:59)
[2019-07-22] MEDS: DULCOLAX PR SCH ×2 (09:25→20:59)
[2019-07-22] MEDS: MIRALAX PO SCH ×2 (09:25→20:59)
[2019-07-22] MEDS: CYMBALTA PO SCH ×2 (09:25→20:59)
[2019-07-22] MEDS: CENTRUM SILVER PO SCH (09:25)
[2019-07-22] MEDS: LACTULOSE PO SCH (09:25)
[2019-07-22] MEDS: PAXIL PO SCH (09:26)
[2019-07-22] MEDS: ULTRAM PO PRN (13:19)
[2019-07-22] MEDS: ZOFRAN IV PRN (13:19)
--- NOTE | 2019-07-22 13:26 | GASTROENTEROLOGY PROGRESS NOTE ---
DATE: 07/22/2019 SUBJECTIVE: Ms. Cheung is a 64-year-old female who was resting in bed. Family was at the bedside. The patient complained of feeling nauseated and she was also complaining of feeling like she is passing too much gas. The patient did have 2 bowel movements today. OBJECTIVE: Vital Signs: Temperature 97.7 degrees, pulse is 80, respirations 19, blood pressure 131/70, oxygen saturation 96% on room air. Her weight is 156 pounds. BMI is 28.6 kg/m2. General: She is alert, oriented x3, and in no acute distress. HEENT: Pale conjunctivae. No icterus. PERRL. Neck: Supple. Lungs: Clear to auscultation in anterior aldana. Cardiovascular: Regular rate and rhythm. Abdomen: Soft, nontender, mildly distended. Active bowel sounds heard in all 4 quadrants. Extremities: No clubbing. No cyanosis, no edema. Generalized edema noted in the pedal pulses. Pedal pulses 2+ present bilaterally. Neurologic: She is alert, oriented x3. LABORATORY DATA: WBCs of 4.01, RBC 3.28, hemoglobin is 9.9, hematocrit is 31.3, platelet count is 271,000. Sodium 143, potassium 3.6, chloride 108, carbon dioxide 24, anion gap 11, BUN 12, creatinine 1.0, glucose is 107, calcium is 8.2. IMPRESSION: 1. Constipation. 2. Acute kidney injury. 3. Generalized weakness. 4. Nausea and vomiting. 5. Mild anemia. 6. Chronic obstructive pulmonary disease. 7. Chronic smoker. 8. Kidney stones in the right kidney. 9. Mild diverticulosis of the sigmoid colon. 10. Arthritis. PLAN: Ms. Cheung is a 64-year-old female. GI has been following her for nausea, vomiting, and dyspepsia. The patient is currently receiving Zofran antiemetic for her nausea and vomiting. She is on GI prophylaxis, Protonix 40 mg IV twice a day. For her bowel regimen she is on Dulcolax, MiraLAX and lactulose. The patient's constipation is currently improving. Physical therapy has been working with the patient. The patient mentioned that she did have a recent colonoscopy done a year ago and according to her, it was normal. We will continue to monitor the patient and follow the plan of care per PCP. This plan was discussed with Dr. Garcia. Please call us for any further questions or concerns. Dictated by VITA Wilson for Emmanuel Garcia MD cc: Emmanuel Garcia MD I have seen and examined the patient myself and I agree with the above plan of care. Discussed the above with the patient and all questions were answered. Please call us with any further questions. BREONNAD
[2019-07-22] MEDS ORDERED: ULTRAM PO PRN (16:11)
[2019-07-22] MEDS: PROTONIX IV SCH (20:59)
--- NOTE | 2019-07-22 21:30 | PROGRESS NOTE ---
DATE: 07/22/2019 SUBJECTIVE: She is still complaining of some abdominal distention and she has been having some nausea and vomiting today, even though she has started having some bowel movement and actually I have 3 documented today, as per the patient it is not liquid. Her abdomen is slightly distended, and the patient is passing a lot of gas, I talked to the patient and I ask her to take the pain medication only if she really needs that because I want her bowel function to improve. Gastroenterology department has been consulted and they have been following this patient closely. She came in with acute kidney injury, which is basically resolved. I will ask for a new abdominal x-ray in the morning. I have decreased the dose of the pain medication and I basically will continue with the rest of the treatment. I answered all her questions. OBJECTIVE: Vital Signs: Temperature 97.7 degrees, pulse 78, respiratory rate 16, blood pressure 124/73, oxygen saturation 97% on room air. HEENT: Head normocephalic, no trauma. Right eye PERRLA. 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 Neck: Is supple. No JVD. Central trachea. Chest: Clear to auscultation. No wheezing. No rales. Abdomen: Soft, protuberant. It is slightly distended. It is tympanic to percussion, positive bowel sounds. Extremities: No edema, no clubbing, no cyanosis. Neurological: The patient is awake, alert. She is oriented x3. No focal neurological deficits. LABORATORY: WBC 4, hemoglobin 9.9, hematocrit 31.3, platelets 271,000. Sodium 143, potassium 3.6, chloride 108, bicarbonate 24, BUN 12, creatinine 1, glucose 107, calcium 8.2. ASSESSMENT AND PLAN: 1. Nausea, vomiting, and abdominal pain. She is still having some vomiting and actually she vomited today. Apparently, she was admitted due to some diarrhea, but now she is constipated. She has been placed on stool softener. She has been having some bowel movement. We have 3 bowel movements documented today. 2. Acute kidney injury, resolved. 3. Leukocytosis, resolved. Likely reactive. This patient is not getting any kind of antibiotics at this moment. 4. Generalized weakness. Continue with physical therapy. 5. Hypotension, resolved. At the beginning this patient's blood pressure dropped to the 80s. This patient has been passing a lot of gas and her abdomen is slightly distended. I will get a new x-ray in the morning. She has been having bowel movements. I believe she is getting better, but she got an episode of vomiting today. She felt some abdominal pain and then she vomited. We will monitor this patient closely and hopefully she will be discharged soon. cc: Son Monroe MD
[2019-07-23 07:42] LABS: BASO# 0.02 X1000 (0.0-0.2); BASO% 0.4 % (0.0-0.8); EOS# 0.14 X1000 (0.0-0.7); EOS% 2.9 % (0.0-10.0); HEMATOCRIT 34.4 % (37.0-47.0); HEMOGLOBIN 11.2 g/dL (12.0-16.0); IMM GRAN# 0.03 X1000 (0.0-0.04); IMM GRAN% 0.6 % (0.0-0.5); LYMPH# 1.46 X1000 (1.2-3.4); LYMPH% 30.4 % (20.5-51.1); MCH 30.9 PG (27-31); MCHC 32.6 g/dL (33-37); MCV 94.8 FL (81-99); MONO# 0.39 X1000 (0.11-0.59); MONO% 8.1 % (1.7-9.3); MPV 9.6 FL (7.4-10.4); NEUT# 2.77 X1000 (1.4-6.5); NEUT% 57.6 % (42.2-75.2); PLT 280 X1000 (130-400); RBC 3.63 XMIL (4.2-5.4); RDW 13.6 % (11.5-14.5); WBC 4.81 X1000 (4.8-10.8)
[2019-07-23 08:00] LABS: AGAP 11; BUN 9 mg/dL (8-22); CALCIUM 8.1 mg/dL (8.8-10.2); CHLORIDE 106 mmol/L (98-107); COSMO 281; CREATININE 0.8 mg/dL (0.5-0.9); ESTIMATED GFR > 60; GLUCOSE 88 mg/dL (70-104); POTASSIUM 3.4 mmol/L (3.5-5.1); SODIUM 142 mmol/L (136-145); TCO2 25 mmol/L (25-35)
--- NOTE | 2019-07-23 08:02 | Diag Imaging Result Doc PS360 ---
ABDOMEN FLAT/UPRIGHT - 07/23/2019 INDICATION: sbo COMPARISON: 07/18/2019 FINDINGS: There is a nonobstructive bowel gas pattern. No free air or abdominal calcifications. IMPRESSION: No acute disease. Electronically signed by Jose Quezada 07/23/2019 8:00 AM
[2019-07-23 08:28] VITALS: BP 127/65
[2019-07-23] MEDS: CENTRUM SILVER PO SCH (09:35)
[2019-07-23] MEDS: PAXIL PO SCH (09:36)
[2019-07-23] MEDS: CYMBALTA PO SCH (09:36)
[2019-07-23] MEDS: FOLIC ACID PO SCH (09:36)
[2019-07-23] MEDS: DULCOLAX PR SCH (09:36)
[2019-07-23] MEDS: MIRALAX PO SCH (09:41)
[2019-07-23] MEDS: LAMICTAL PO SCH (09:43)
[2019-07-23] MEDS ORDERED: KLOR-CON PO ONE (11:08)
--- NOTE | 2019-07-23 20:49 | DISCHARGE SUMMARY ---
ADMISSION DATE: 07/18/2019 DISCHARGE DATE: 07/23/2019 ADMISSION DIAGNOSES: 1. Nausea, vomiting, diarrhea with generalized abdominal pain. 2. Acute kidney injury secondary to #1. 3. Leukocytosis. 4. Hypotension. 5. Tobacco abuse. DISCHARGE DIAGNOSES: 1. Nausea, vomiting, and abdominal pain. 2. Acute kidney injury, resolved. 3. Leukocytosis, resolved. 4. Generalized weakness with physical therapy. 5. Hypotension, resolved. HOSPITAL COURSE: Ms. Charissa Cheung is a 64-year-old female presenting to the emergency department at [facility] with complaints of nausea, vomiting, diarrhea, and some generalized abdominal pain that had been going on for at least 3 weeks. She also had body aches as well. States that vomiting would come after she has tried eat. Workup in the emergency department revealed that she had leukocytosis with a white blood cell count of 16,000, mild acute kidney injury with creatinine of 2 and a BUN of 41. Blood pressure was mildly low, it did drop to the 80s. Fluid resuscitation aided in her blood pressure. Abdominal x-ray showed pulmonary fibrosis, COPD, nonspecific abdomen. She was admitted for further evaluation and treatment. She underwent a CT of the abdomen with p.o. contrast, put her on some fluids and checked a Clostridium difficile. Clostridium difficile was negative. Stool cultures were negative. The abdominal pelvic CT with oral contrast showed a small nonobstructive right renal stone, but no acute findings. GI was consulted due to the continued complaints of GI issues. She was on a GI soft diet. Apparently she had been having some diarrhea at home, but then she had not had any since she was in the hospital. Since she became constipated she was placed on a stool softener. Physical therapy was ordered because she became weak. There were no surgical procedures or interventions. No acute disease on abdominal x-ray from today. She was deemed appropriate for discharge home. Symptoms started to subside. DISCHARGE VITAL SIGNS: Temperature 97.7 degrees, heart rate 71, respiratory rate 20, blood pressure 127/65, O2 saturation 96% on room air. DISCHARGE LAB DATA: White blood cells 4,000, hemoglobin 11, hematocrit 34, platelet count 288,000. Sodium 142, potassium 3.4, BUN 9, creatinine 0.8, glucose 88, calcium 8.1. PERTINENT IMAGING: Abdominal x-ray--pulmonary fibrosis and COPD. Abdominal pelvic CT with oral contrast only-- nonobstructive right renal stone, otherwise no acute findings. Abdominal x-ray repeated on July 23--no acute disease. Telemetry strip showed sinus tach. DISCHARGE MEDICATIONS: 1. Cymbalta 60 mg p.o. twice daily. 2. Folic acid 1 mg p.o. daily. 3. Lamotrigine 100 mg p.o. twice daily. 4. Lisinopril-hydrochlorothiazide 1 tablet p.o. daily. 5. Methotrexate 25 mg p.o. as directed. 6. Paroxetine 30 mg p.o. daily. 7. Centrum Silver 1 tablet p.o. daily. 8. MiraLAX 17 gm p.o. daily. 9. Protonix 40 mg p.o. daily. DISCHARGE ACTIVITY: As tolerated, with physical therapy. DISCHARGE PHYSICIAN FOLLOWUP: Dr. Hurtado or Dr. Garcia. DISCHARGE DIET: GI soft, advance as tolerated. DISCHARGE INSTRUCTIONS: If her condition changes contact physician and/or return to the emergency department. Changes may include, but are not limited to, shortness of breath, increased fatigue, excessive bleeding, unexplained weight loss or gain, unmanageable pain, signs or symptoms of infection. DISCHARGE DISPOSITION: Home. Dictated by VITA Dodge for Son Monroe MD cc: VITA Dodge MD
== END 2019-07-23 12:12 | disposition home or self-care (01) | DRG 684 ==
LOC: ED 08:27 → EDIPHOLD 11:38 → SUATTDRO 11:38 → 3N 12:33
PROVIDERS: ATTEND Internal Medicine